=== PATIENT | male | born 1950 | race Caucasian/White ===

== ENCOUNTER 2016-09-22 06:34 | Day surgery (SDC) | payer MEDICARE, BC ==
[2016-09-19 14:56] LABS: HEMATOCRIT 39.2 % (40.0-51.0); HEMOGLOBIN 13.4 g/dL (13.6-17.8)
[2016-09-19 15:13] LABS: BUN (BLOOD UREA NITROGEN) 12 MG/DL (6-23); CALCIUM, SERUM 8.9 MG/DL (8.5-10.4); CHLORIDE, SERUM 108 MMOL/L (96-112); CO2 (CARBON DIOXIDE) 30 MMOL/L (24-34); CREATININE 0.99 MG/DL (0.70-1.30); GFR AFRICAN AMERICAN 92 ML/MIN (>=60); GFR NON AFRICAN AMERICAN 80 ML/MIN (>=60); GLUCOSE, SERUM 68 MG/DL (60-99); POTASSIUM, SERUM 4.2 MMOL/L (3.5-5.3); SODIUM, SERUM 142 MMOL/L (135-148)
--- NOTE | ~2016-09-22 | OP ---
Record Of Operation [facility] [address] [place]. 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 PROCEDURE: 1. Excision of squamous cell carcinoma of right ear tragus, 9 mm x 12 mm with margins and frozen section analysis. 2. Tissue rearrangement via advancement flap using the preauricular and cheek skin 2 cm x 2.5 cm for 5 sq cm in size. ESTIMATED BLOOD LOSS: 1 mL. COMPLICATIONS: None. IV FLUIDS: 1200 mL. SPECIMENS: Right ear tragus squamous cell carcinoma for frozen section analysis, which came back negative on specimen being sent. INDICATIONS FOR PROCEDURE: This is a 66-year-old male, who had a suspicious lesion on his right ear tragus area. It had previously been treated by cryotherapy in the past and had recurred. For that reason, he underwent shave biopsy by Donald Esparza, who is a nurse practitioner at [facility]. Pathology came back as well- differentiated squamous cell carcinoma. For that reason, he was referred for definitive excision and possible reconstruction. The risks, including but not limited to, bleeding, infection, asymmetry, need for additional procedures, etc., as well as the benefits and alternatives were discussed with him in the preoperative setting, and he agreed to proceed as outlined today with informed consent being obtained. PROCEDURE NOTE: The patient was identified in the preoperative holding area where the right tragal lesion was easily identified and marked. He had antibiotics initiated and compression stockings and SCDs placed prior to being transported to the operating room. In the operating room, he was placed supine on the operating room table with all dependent areas adequately padded. After smooth induction of general endotracheal anesthesia, his arms were tucked in a papoose style in his bilateral ears were prepped and draped in standard surgical fashion. The lesion was again identified on the right tragus and appropriate margins were added for a lesion size of 9 mm x 12 mm. Local anesthetic was introduced into the area and allowed to set for about 5 minutes for basal constriction and pain control. The local is 1% lidocaine with 1:100,000 epinephrine. After adequate time had passed, incision was then made with a #15C scalpel. This was full thickness down to the level of the underlying tissue and cartilage. The lesion was then further elevated sharply with scalpel and marked with suture at 12 o'clock position prior to being passed off table for frozen section analysis by Pathology. Gentle pressure was held on the area so as to Record Of Operation [facility] [id number] [facility] [place]. [address] NAME: DARCI ROMANO : 52 STATUS : [facility]#: [id number] AGE: 66 ADM/REG DATE : 09/22/16 MR#: [id number] REPORT SERV DATE: 09/25/16 DICTATED BY: LENA SOARES DATE: 09/25/16 REPORT STATUS : Draft TRANSCRIBED BY: SHERLEY DATE: 09/25/16 control minimal amount of bleeding. Eventually, we heard back from the pathologist that the margins were clear without any significant cancer being located at present just to the previous biopsy changes. With that in mind, I pleged the area for hemostasis and applied a small amount of electrocautery to control any areas of bleeding. I then performed an advancement flap using the preauricular and cheek tissue. To do so, the flap was elevated in a subcutaneous plane in the facelift style using blunt and sharp dissection. After I had adequate mobility of the skin flaps, I then freed up the tissue on the posterior aspect of the tragus as well. This was also done sharply and bluntly. Any bleeding was controlled with electrocautery. The area was then irrigated and closed in a multilayer fashion consisting of interrupted 4-0 Monocryl to reapproximate the subcutaneous and dermal tissue. This was then followed by interrupted and running 5-0 Prolene sutures. To recreate the sort of dimple in front of the tragus, I placed interrupted 4-0 Monocryl sutures in a mattress- style fashion to get the indentation. Prior to final reconstruction, I did compare his look to his preoperative photographs and it was extremely similar in nature. However, he does have very differing appearance of the tragus area from the right and left ears before having the excision done. This was explained to the patient and the family. After final closure, the area then had mupirocin ointment placed on it because of the Neosporin allergy and an eye gauze dressing and Steri-Strips were placed for securement. The patient tolerated the procedure well without any sign of complication. He was awakened, extubated, and transported to the postanesthesia care unit where he was recovered without any sign of difficulty. Sponge and instrument counts were correct and verified at the end of the case. NEO/SHERLEY Lena Soares MD / [id number] CC: MD Darrick Gibbs M.D.
[~2016-09-22 06:34] MED LIST: COZ25 PO; ZOCOR10 PO
== END 2016-09-22 23:59 | disposition home or self-care (01) ==
LOC: SDC 06:34
PROVIDERS: Plastic Surgery
PROC: 0HX2XZZ Transfer Right Ear Skin, External Approach (ICD-10-PCS; 2016-09-22)
PROC: 09B0XZZ Excision of Right External Ear, External Approach (ICD-10-PCS; principal; 2016-09-22 07:45)
DX: C44.222 Squamous cell carcinoma of skin of right ear and external auricular canal (principal); I10 Essential (primary) hypertension; G47.33 Obstructive sleep apnea (adult) (pediatric); E78.00 Pure hypercholesterolemia, unspecified; H26.9 Unspecified cataract; H91.91 Unspecified hearing loss, right ear; Z88.1 Allergy status to other antibiotic agents; Z88.0 Allergy status to penicillin; Z87.891 Personal history of nicotine dependence; Z90.89 Acquired absence of other organs; Z97.4 Presence of external hearing-aid; Z79.2 Long term (current) use of antibiotics; Z79.899 Other long term (current) drug therapy; Z98.890 Other specified postprocedural states
CPT/HCPCS: 80048; 85014; 85018; 88305; 88331; 93005; A9270-GY; J0690; J2250; J2405; J2710; J3010